=== PATIENT | male | born 1935 | race Caucasian/White ===

== ENCOUNTER 2019-11-15 17:23 | Emergency (ER) | payer OTHER, MEDICAID ==
[~2019-11-15] VITALS: Ht 152.4 cm; Wt 70.3 kg
[~2019-11-15 17:23] MED LIST: BIA500 PO; BIAXIN FILMTAB500 MG PO; CARAFATE1 GM PO; CARVEDILOL12.5 M1 PO; CLOPIDOGREL75 M1 PO; COL100 PO; COREG12.5 MG PO; DDAVP0.2 MG PO; FLA500 PO; HEP5I IV; IMDUR30 MG PO; ISO10 PO; LISINOPRIL2.5 MG PO; LOR PO; MOR4I IV; NIT0.4 SL; PANTOPRAZOLE SO40 M1 PO; PHE25I IV; PROMETHAZINE HY25 M1 PO; RES15 PO; TEMAZEPAM15 MG PO; ZES5 PO; ZOC20 PO
[2019-11-15 17:31] VITALS: Ht 152.4 cm; Wt 70.3 kg
[2019-11-15 18:07] LABS: BASOPHIL % 0.3 % (0-2); PLATELET COUNT 263 x10^3mcL (130-400)
[2019-11-15 18:08] LABS: RED CELL DISTRIBUTION WIDTH 16.2 % (11.5-14.5)
[2019-11-15 18:29] LABS: CALCIUM 8.7 mg/dL (8.5-10.1); CARBON DIOXIDE 24.6 mmol/L (21-32); CHLORIDE SERUM 103 mmol/L (98-107); CREATININE SERUM 0.7 mg/dL (0.7-1.3); GLUCOSE SERUM 186 mg/dL (74-106); POTASSIUM SERUM 4.4 mmol/L (3.5-5.1); SODIUM SERUM 136 mmol/L (136-145)
[2019-11-15 18:34] LABS: ALKALINE PHOSPHATASE 70 U/L (46-116); ALT/SGPT 26 U/L (16-63); BILIRUBIN TOTAL 0.7 mg/dL (0.20-1.00); LIPASE 86 IU/L (73-393); TOTAL PROTEIN, SERUM 6.9 g/dL (6.4-8.2)
[2019-11-15 18:35] LABS: ALBUMIN 3.1 g/dL (3.4-5.0)
[2019-11-15 18:36] LABS: AST/SGOT 32 U/L (15-37)
[2019-11-15 20:21] VITALS: BP 110/76
== END 2019-11-15 20:21 | disposition home or self-care (01) ==
LOC: ED 17:23
PROVIDERS: Emergency Medicine
DX: R07.89 Other chest pain (principal); I10 Essential (primary) hypertension; K21.9 Gastro-esophageal reflux disease without esophagitis; Z98.890 Other specified postprocedural states
CPT/HCPCS: 36415; 85378